=== PATIENT | female | born 1985 | race Hispanic/Latino ===

== ENCOUNTER 2017-07-01 21:56 | Emergency (ER) | payer SELFPAY ==
[~2017-07-01] VITALS: Ht 157.5 cm; Wt 96.8 kg
[2017-07-01 22:18] VITALS: BP 148/75
[2017-07-01 22:51] LABS: HEMATOCRIT 36.5 % (36.0-46.0); MCH 28.1 PG (29.0-34.0); MCHC 33.7 G/DL (30.0-36.0); MCV 83.3 FL (83-99); PLATELET COUNT 274 K/uL (156-360); RBC DIS.WIDTH-CV 12.7 % (11.8-14.6); RBC DIS.WIDTH-SD 38.5 % (39-53); RED BLOOD COUNT 4.38 M/uL (3.80-5.20); WHITE BLOOD COUNT 9.2 K/uL (4.1-10.2)
[2017-07-01 23:02] LABS: CHLORIDE 105 mEq/L (99-109); POTASSIUM 3.9 mEq/L (3.7-5.4); SODIUM 141 mEq/L (136-147)
[2017-07-01 23:03] LABS: GLUCOSE 103 mg/dL (70-99)
[2017-07-01 23:05] LABS: ANION GAP 13 MEQ/L (2-14)
[2017-07-01 23:07] LABS: GFR ESTIMATE (CALCULATED) > 59 mL/min/
[2017-07-01 23:08] LABS: UREA NITROGEN (BUN) 16 mg/dL (9-23)
[2017-07-01 23:11] LABS: TROP-I INTERPRETATION NEGATIVE; TROPONIN-I < 0.01 ng/mL (0.0-0.30)
[2017-07-01 23:19] LABS: QUANTITATIVE HCG < 4.0 MIU/ML
== END 2017-07-01 23:48 | disposition home or self-care (01) ==
LOC: EME 21:56
PROVIDERS: Emergency Medicine
DX: R51 Headache (principal); R07.89 Other chest pain; Z91.040 Latex allergy status
CPT/HCPCS: 71010; 80048; 84484; 84702; 85027; 93005; 99281; 99285; J1885; J2405; S0028

== ENCOUNTER 2018-01-13 20:16 | Outpatient (CLI) | payer OTHER ==
[~2018-01-13] VITALS: Ht 157.5 cm; Wt 100.0 kg
[~2018-01-13 20:16] MED LIST: DEPO-PROVER150 MG/ML IM; HYDROCODON-ACE1 EAC7 PO; MOTRIN800 MG PO; Motrin PO; NO HOME MEDS; OXYCODONE HCL5 MG PO; Vitron-C,Hematogen,F PO
[2018-01-13 20:23] VITALS: BP 139/70
[2018-01-13 20:55] LABS: APPEARANCE CLEAR ((CLEAR)); BILIRUBIN NEGATIVE; BLOOD NEGATIVE; COLOR YELLOW ((YELLOW)); GLUCOSE (STRIP) NEGATIVE; KETONES NEGATIVE; LEUKOCYTES NEGATIVE; NITRITE NEGATIVE; PROTEIN (STRIP) NEGATIVE; SPECIFIC GRAVITY 1.012 (1.000-1.030); UCUL ADDED? NO; UROBILINOGEN 0.2 MG/DL (0.2-1.0)
[2018-01-13 20:59] LABS: BASOPHIL (%) 0.3 % (0-1); EOSINOPHIL (%) 1.3 % (0-5); EOSINOPHIL COUNT 0.1 K/uL (0-0.3); HEMATOCRIT 30.2 % (36.0-46.0); HEMOGLOBIN 10.2 G/DL (11.9-15.5); LYMPHOCYTE (%) 23.7 % (15-42); LYMPHOCYTE COUNT 2.1 K/uL (1.0-2.8); MCH 27.2 PG (29.0-34.0); MCHC 33.8 G/DL (30.0-36.0); MCV 80.5 FL (83-99); MONOCYTE COUNT 0.5 K/uL (0-0.8); NEUTROPHIL (%) 68.7 % (45-76); NEUTROPHIL COUNT 6.2 K/uL (1.8-6.4); PLATELET COUNT 219 K/uL (156-360); RBC DIS.WIDTH-CV 13.3 % (11.8-14.6); RBC DIS.WIDTH-SD 38.4 % (39-53); RED BLOOD COUNT 3.75 M/uL (3.80-5.20)
[2018-01-13 21:20] LABS: ALBUMIN 3.6 G/DL (3.2-4.8); CHLORIDE 103 MEQ/L (99-109); POTASSIUM 3.9 MEQ/L (3.7-5.4); SODIUM 133 MEQ/L (136-147); TOTAL BILIRUBIN 0.5 MG/DL (0.0-1.0)
[2018-01-13 21:24] LABS: AMPHETAMINE NEGATIVE (500 ng/mL); BARBITURATES NEGATIVE (200 ng/mL); BENZODIAZEPINES NEGATIVE (150 ng/mL); BUPRENORPHINE NEGATIVE (10 ng/mL); COCAINE NEGATIVE (150 ng/mL); METHADONE NEGATIVE (200 ng/mL); METHAMPHETAMINE NEGATIVE (500 ng/mL); OPIATES (MORPHINE) NEGATIVE (100 ng/mL); OXYCODONE NEGATIVE (100 ng/mL); PHENCYCLIDINE NEGATIVE (25 ng/mL); PROPOXYPHENE NEGATIVE (300 ng/mL); THC CANNABINOIDS NEGATIVE (50 ng/mL); TRICYCLIC ANTIDEPRESSANTS NEGATIVE (300 ng/mL)
[2018-01-13 21:25] LABS: ALKALINE PHOSPHATASE 114 IU/L (3-129); ALT (GPT) 7 IU/L (3-49); AST (GOT) 9 IU/L (2-34); CREATININE 0.6 MG/DL (0.6-1.3); GFR ESTIMATE (CALCULATED) > 59 mL/min/; GLUCOSE 105 mg/dL (70-99); TOTAL PROTEIN 6.7 G/DL (6.4-8.3); UREA NITROGEN (BUN) 9 mg/dL (9-23)
[2018-01-13 22:17] VITALS: BP 108/59
[2018-01-13 22:28] LABS: CANDIDA DNA PROBE NEGATIVE; GARDNERELLA DNA PROBE NEGATIVE; TRICHOMONAS DNA PROBE NEGATIVE
[2018-01-13 22:45] VITALS: BP 109/61
[2018-01-14] MEDS ORDERED: KEFLEX500 MG PO (01:02)
[2018-01-14 02:10] VITALS: BP 110/58
== END 2018-01-14 02:31 | disposition home or self-care (01) ==
LOC: LDRP-OP 20:16 → 2WEST 20:18
PROVIDERS: Advanced Practice Midwife
DX: O26.893 Other specified pregnancy related conditions, third trimester (principal); R10.2 Pelvic and perineal pain; M54.5 Low back pain; R30.0 Dysuria; Z3A.28 28 weeks gestation of pregnancy
CPT/HCPCS: 59025; 76770; 80053; 81003; 85025; 87086; 87480; 87510; 87660; G0378; J0696; J3010; J7120

== ENCOUNTER 2018-03-26 07:34 | Inpatient (IN) | payer OTHER ==
[~2018-03-26] VITALS: Ht 154.9 cm; Wt 108.0 kg
[2018-03-26] VITALS (22 sets, daily range): BP systolic 111–169; BP diastolic 55–94
[~2018-03-26 07:34] MED LIST changes: +KEFLEX500 MG PO
[2018-03-26] MEDS ORDERED: PRENATAL TABLE1 EAC3 PO (08:17)
[2018-03-26 10:44] LABS: AMPHETAMINE NEGATIVE (500 ng/mL); BARBITURATES NEGATIVE (200 ng/mL); BENZODIAZEPINES NEGATIVE (150 ng/mL); BUPRENORPHINE NEGATIVE (10 ng/mL); COCAINE NEGATIVE (150 ng/mL); METHADONE NEGATIVE (200 ng/mL); METHAMPHETAMINE NEGATIVE (500 ng/mL); OPIATES (MORPHINE) NEGATIVE (100 ng/mL); OXYCODONE NEGATIVE (100 ng/mL); PHENCYCLIDINE NEGATIVE (25 ng/mL); PROPOXYPHENE NEGATIVE (300 ng/mL); THC CANNABINOIDS NEGATIVE (50 ng/mL); TRICYCLIC ANTIDEPRESSANTS NEGATIVE (300 ng/mL)
[2018-03-26 10:52] LABS: UR CREATININE CONCENTRATION 151.4 MG/DL
[2018-03-26 10:55] LABS: BASOPHIL (%) 0.6 % (0-1); EOSINOPHIL (%) 1.2 % (0-5); EOSINOPHIL COUNT 0.1 K/uL (0-0.3); HEMATOCRIT 32.6 % (36.0-46.0); HEMOGLOBIN 10.8 G/DL (11.9-15.5); IMMATURE GRANULOCYTE (%) 0.4 % (0.0-0.7); LYMPHOCYTE (%) 24.6 % (15-42); LYMPHOCYTE COUNT 1.7 K/uL (1.0-2.8); MCH 25.5 PG (29.0-34.0); MCHC 33.1 G/DL (30.0-36.0); MCV 76.9 FL (83-99); MONOCYTE (%) 3.8 % (3-12); MONOCYTE COUNT 0.3 K/uL (0-0.8); NEUTROPHIL (%) 69.4 % (45-76); NEUTROPHIL COUNT 4.8 K/uL (1.8-6.4); PLATELET COUNT 215 K/uL (156-360); RBC DIS.WIDTH-SD 40.7 % (39-53); RED BLOOD COUNT 4.24 M/uL (3.80-5.20); WHITE BLOOD COUNT 6.9 K/uL (4.1-10.2)
[2018-03-26 11:08] LABS: ALKALINE PHOSPHATASE 327 IU/L (3-129); ALT (GPT) 10 IU/L (3-49); AST (GOT) 12 IU/L (2-34); CHLORIDE 104 MEQ/L (99-109); CREATININE 0.6 MG/DL (0.6-1.3); GFR ESTIMATE (CALCULATED) > 59 mL/min/; GLUCOSE 106 mg/dL (70-99); LACTATE DEHYDROGENASE 150 IU/L (20-246); POTASSIUM 3.9 MEQ/L (3.7-5.4); SODIUM 137 MEQ/L (136-147); TOTAL BILIRUBIN 0.4 MG/DL (0.0-1.0); TOTAL PROTEIN 6.1 G/DL (6.4-8.3); UREA NITROGEN (BUN) 9 mg/dL (9-23); URIC ACID 5.3 mg/dL (3.1-9.2)
[2018-03-27 06:50] LABS: BASOPHIL (%) 0.1 % (0-1); EOSINOPHIL (%) 1.1 % (0-5); EOSINOPHIL COUNT 0.1 K/uL (0-0.3); HEMATOCRIT 30.1 % (36.0-46.0); HEMOGLOBIN 9.9 G/DL (11.9-15.5); IMMATURE GRANULOCYTE (%) 0.4 % (0.0-0.7); LYMPHOCYTE (%) 15.2 % (15-42); LYMPHOCYTE COUNT 1.5 K/uL (1.0-2.8); MCH 25.7 PG (29.0-34.0); MCHC 32.9 G/DL (30.0-36.0); MCV 78.2 FL (83-99); MONOCYTE (%) 2.6 % (3-12); MONOCYTE COUNT 0.3 K/uL (0-0.8); NEUTROPHIL (%) 80.6 % (45-76); PLATELET COUNT 241 K/uL (156-360); RBC DIS.WIDTH-CV 15.1 % (11.8-14.6); RBC DIS.WIDTH-SD 42.5 % (39-53); RED BLOOD COUNT 3.85 M/uL (3.80-5.20); WHITE BLOOD COUNT 9.9 K/uL (4.1-10.2)
[2018-03-27 08:00] VITALS: BP 122/68
[2018-03-27 15:20] VITALS: BP 110/57
[2018-03-28 07:59] VITALS: BP 140/76
== END 2018-03-28 12:50 | disposition home or self-care (01) | DRG 775 ==
LOC: LDRP-OP 07:34 → 2WEST 07:35 → LDRP-OP 10:31 → 2WEST 21:52 → LDRP-OP 05-03 03:54
PROVIDERS: Advanced Practice Midwife
DX: O99.824 Streptococcus B carrier state complicating childbirth (principal); Z68.41 Body mass index [BMI] 40.0-44.9, adult; O99.214 Obesity complicating childbirth; E66.9 Obesity, unspecified; Z37.0 Single live birth; Z3A.39 39 weeks gestation of pregnancy; O75.89 Other specified complications of labor and delivery; D62 Acute posthemorrhagic anemia; O99.02 Anemia complicating childbirth
CPT/HCPCS: 80053; 82570; 83615; 84156; 84550; 85025; 87086; J0595; J1050; J2540; J7120; Q0169